=== PATIENT | female | born 1950 | race Caucasian/White ===

== ENCOUNTER 2017-05-27 18:05 | Emergency (ER) | payer OTHER ==
[~2017-05-27] VITALS: Ht 170.2 cm; Wt 76.0 kg
[2017-05-27] MEDS ORDERED: ONDANSETRON HCL 4MG/2ML VIAL IV STA ×2 (18:53→23:34)
[2017-05-27] MEDS ORDERED: SODIUM CHLORIDE 0.9% 1,000 ML IV ONE (18:53)
[2017-05-27] MEDS ORDERED: MORPHINE SULFATE 4 MG/ML CPJ (NOT FOR IM USE) IV STA (18:53)
[2017-05-27 19:26] LABS: BASOPHILS % 0.2 % (0.0-2.0); HEMATOCRIT. 31.6 % (36.0-48.0); LYMPHOCYTES % 10.1 % (20.0-50.0); MEAN CORPUSCULAR HEMOGLOBIN 28.8 pg (28.0-32.0); MEAN CORPUSCULAR VOLUME 82.4 fL (81.0-99.0); MEAN PLATELET VOLUME 8.2 fl (7.4-10.4); MONOCYTES % 5.4 % (2.0-8.0); NEUTROPHILS % 84.3 % (40.0-76.0); PLATELET 133 x1000/uL (130-400); RED BLOOD CELL COUNT 3.83 mill/uL (4.2-5.4); RED CELL DISTRIBUTION WIDTH 13.5 % (11.6-14.6)
[2017-05-27 19:33] LABS: CHLORIDE 101 mEq/L (98-107)
[2017-05-27 19:37] LABS: INR 1.2; PARTIAL THROMBOPLASTIN TIME 35.4 sec (23.4-31.0); PROTHROMBIN TIME 12.6 sec (9.4-11.6)
[2017-05-27 19:38] LABS: CARBON DIOXIDE 25 mEq/L (21-32)
[2017-05-27 19:43] LABS: BETA HYDROXYBUTYRATE 1.2 mMol/L (0.0-0.3); TROPONIN I < 0.02 ng/mL (0.00-0.04)
[2017-05-27] MEDS ORDERED: CEFTRIAXONE 1 G PREMIX 50 ML IV ONE (21:00)
[2017-05-27 21:19] LABS: CLARITY URINE TURBID (CLEAR); COLOR URINE DARK YELLOW (YELLOW); GLUCOSE URINE NEGATIVE (NEGATIVE); KETONES URINE TRACE (NEGATIVE); LEUKOCYTE ESTERASE URINE 3+ (NEGATIVE); NITRITE URINE POSITIVE (NEGATIVE); OCCULT BLOOD URINE 2+ (NEGATIVE); PROTEIN URINE 3+ (NEGATIVE)
[2017-05-27] MEDS ORDERED: ACETAMINOPHEN 500MG TABLET PO ONE (23:45)
[2017-05-28 00:17] VITALS: BP 125/63
== END 2017-05-28 01:14 | disposition short-term general hospital (02) ==
LOC: ER 19:42 → CANBEDREQ 21:32 → ER 05-28 01:14
DX: N12 Tubulo-interstitial nephritis, not specified as acute or chronic (principal); N28.9 Disorder of kidney and ureter, unspecified; R00.0 Tachycardia, unspecified; I49.3 Ventricular premature depolarization; E11.9 Type 2 diabetes mellitus without complications; I51.7 Cardiomegaly; I45.10 Unspecified right bundle-branch block; I10 Essential (primary) hypertension
CPT/HCPCS: 36415; 71010; 74176; 80053; 81001; 82010; 83605; 83690; 84484; 85025; 85610; 85730; 87077; 87086; 87186; 93005; 96374; 96375; 96376; 99285; J0696; J2270; J2405; J7030

== ENCOUNTER 2017-11-02 23:53 | Emergency (ER) | payer OTHER ==
[~2017-11-02] VITALS: Ht 172.7 cm; Wt 103.0 kg
[2017-11-03 01:36] VITALS: BP 150/90
== END 2017-11-03 03:22 | disposition home or self-care (01) ==
LOC: ER 23:53
DX: K56.609 Unspecified intestinal obstruction, unspecified as to partial versus complete obstruction (principal); E11.9 Type 2 diabetes mellitus without complications; I10 Essential (primary) hypertension; M19.90 Unspecified osteoarthritis, unspecified site; Z95.0 Presence of cardiac pacemaker
CPT/HCPCS: 93005; 99283